=== PATIENT | female | born 1975 | race Caucasian/White ===

== ENCOUNTER 2018-01-11 22:19 | Emergency (ER) | payer OTHER ==
[~2018-01-11] VITALS: Ht 170.2 cm; Wt 72.6 kg
[2018-01-11] MEDS ORDERED: ESCI5TAB PO ×2 (22:43→22:44)
[2018-01-11] MEDS ORDERED: BIRTH CONTROL (22:43)
--- NOTE | 2018-01-11 22:50 | NUR ---
MD OLEARY AT BEDSIDE FOR MSE
--- NOTE | 2018-01-11 23:05 | NUR ---
PT IN ROUTE TO CT IN WHEELCHAIR WITH TRANSPORTER
--- NOTE | 2018-01-11 23:20 | NUR ---
PT RETURNS FROM CT IN WHEELCHAIR WITH TRANSPORTER
--- NOTE | 2018-01-12 00:30 | NUR ---
Patient discharged to home in stable conditon. Written and verbal after care instructions given. Patient verbalizes understanding of instructions. Patient able to ambulate unassisted with a steady gait. Patient left with all personal belongings.
[2018-01-12 01:04] VITALS: BP 136/84
== END 2018-01-12 00:30 | disposition home or self-care (01) ==
LOC: ER 22:23
DX: R22.1 Localized swelling, mass and lump, neck (principal)
CPT/HCPCS: 70490; A4663